=== PATIENT | male | born 1975 | race African-American/Black ===

== ENCOUNTER 2019-05-01 18:17 | Emergency (ER) | payer BC ==
[~2019-05-01] VITALS: Ht 180.3 cm; Wt 138.3 kg
[2019-05-01 18:18] VITALS: BP 159/110
--- NOTE | 2019-05-01 18:28 | NUR ---
PT AMBULATED TO BED
--- NOTE | 2019-05-01 18:42 | NUR ---
43 Y/O M C/O RIGHT FOOT PAIN 8/ X 1 WEEK WITH EXTENSION AND STANDING. PT DENIES INJURY. WENT TO ER X 2 WEEKS AGO FOR SAME SX, NOT RESOLVED. CAP REFIL X 3 TOES RIGHT FOOT. NO REDNESS, OPEN WOUNDS. PT POSITIONED FOR COMFORT. CLAUDIAA
--- NOTE | 2019-05-01 19:14 | NUR ---
REPORT GIVEN TO GODWIN NAVARRO CHANGE OF SHIFT.
[2019-05-01] MEDS ORDERED: KETOROLAC 60 MG/2 ML VIAL IM ONE (19:30)
[2019-05-01 20:18] VITALS: BP 159/110
--- NOTE | 2019-05-01 20:18 | NUR ---
PT DISCHARGED WITH PAPERWORK. EDUCATED PT REGARDING MEDICATIONS AND D/C INSTRUCTIONS. PT VERBALIZED UNDERSTANDING OF TEACHING. TOLD PT TO FOLLOW UP WITH PCP AND WHEN TO RETURN TO ED. PT STABLE CONDITION. ABLE TO AMBULATE WITH STEADY GAIT. ALL QUESTIONS ANSWERED.
== END 2019-05-01 20:18 | disposition home or self-care (01) ==
LOC: EDBD 18:17 → MED 18:17
DX: S90.31XA Contusion of right foot, initial encounter (principal); Z98.890 Other specified postprocedural states; X58.XXXA Exposure to other specified factors, initial encounter; Y93.9 Activity, unspecified; Y92.89 Other specified places as the place of occurrence of the external cause; Y99.8 Other external cause status
CPT/HCPCS: 73630; 96372; 99283; J1885; Q0092